=== PATIENT | female | born 1970 | race Caucasian/White ===

== ENCOUNTER 2017-03-07 11:10 | Emergency (ER) | payer MEDICARE ==
--- NOTE | 2017-03-07 12:20 | RAD ---
RIGHT KNEE FOUR VIEWS: HISTORY: Injury. Right knee pain. FINDINGS: No fracture, dislocation, or bony destruction is seen. POS: [facility]
== END 2017-03-07 13:00 | disposition home or self-care (01) ==
LOC: MADERS 11:10
DX: S80.01XA Contusion of right knee, initial encounter (principal); Z79.899 Other long term (current) drug therapy; I10 Essential (primary) hypertension; W55.12XA Struck by horse, initial encounter

== ENCOUNTER 2020-06-10 11:11 | Outpatient (CLI) | payer MEDICARE ==
--- NOTE | 2020-06-10 11:53 | RAD ---
EXAM: XR Lumbar Spine Min 4 View PROVIDED CLINICAL HISTORY: Chronic low back pain. History of prior low back surgery. COMPARISON: 02/12/2019 FINDINGS: Dorsal column stimulator leads again overlie the lower thoracic and upper lumbar spine without genera tor present. Postoperative changes lower lumbar spine are again seen with bipedicular screws and posterior rods transfixing the L4-5 and L5-S1 levels. Stable lucencies are again demonstrated surroun ding the S1 pedicle screws. Laminectomy defects are seen involving the lower lumbar spine similar to prior exam. Vertebral body heights are within normal limits. No fracture or subluxation is seen. S light S-shaped curvature of thoracolumbar spine is again noted. There was evidence of grade 1 anterolisthesis of L5 on S1 on the prior exam which is not appreciated on today's exam. Surgical clip s again overlie the right upper quadrant, and there is a moderate amount retained fecal material seen throughout the colon. IMPRESSION: 1. Stable postoperative changes lumbar spine including stable nonspecific lucency about the S1 pedicl e screws. Loosening is a possibility. 2. Constipation.
== END 2020-06-10 11:12 | disposition home or self-care (01) ==
LOC: MADRT 11:11
PROVIDERS: ATTEND Family Medicine
DX: M54.5 Low back pain (principal); G89.29 Other chronic pain; K59.00 Constipation, unspecified; R93.7 Abnormal findings on diagnostic imaging of other parts of musculoskeletal system; Z98.890 Other specified postprocedural states
CPT/HCPCS: 72110